=== PATIENT | male | born 1990 | race Caucasian/White ===

== ENCOUNTER 2018-01-17 19:28 | Emergency (ER) | payer OTHER ==
[2018-01-17 20:02] VITALS: BP 134/83
--- NOTE | 2018-01-17 20:16 | UC ---
Dental HPI - HPI Summary HPI Summary: C/O right upper dental pain from 3 days ago. Getting worse. tried 4 doses of 500mg amoxicillin - History of Current Complaint Chief Complaint: UCDentalProblem Stated Complaint: ORAL/DENTAL COMPLAINT Time Seen by Provider: 01/17/18 19:46 Hx Obtained From: Patient Onset/Duration: Gradual Onset, Lasting Days - 3, Worse Since - onset Severity: Severe Pain Intensity: 7 Aggravating Factor(s): Chewing - Allergies/Home Medications Allergies/Adverse Reactions: Allergies Allergy/AdvReac Type Severity Reaction Status Date / Time No Known Allergies Allergy Verified 01/17/18 20:02 Home Medications: Home Medications Ibuprofen TAB* [Motrin TAB* 800 MG] 800 mg PO Q6H PRN 01/17/18 [History Confirmed 01/17/18] PMH/Surg Hx/FS Hx/Imm Hx Previously Healthy: Yes - Surgical History Surgical History: None - Family History Known Family History: Negative: Cardiac Disease, Hypertension, Diabetes - Social History Occupation: Employed Full-time Lives: With Family Alcohol Use: Rare Substance Use Type: None Smoking Status (MU): Heavy Every Day Tobacco Smoker Type: Cigarettes Amount Used/How Often: 1 ppd Length of Time of Smoking/Using Tobacco: since age 20 Have You Smoked in the Last Year: Yes - Immunization History Most Recent Tetanus Shot: 5 years ago Review of Systems ENT: Dental Pain Is Patient Immunocompromised?: No All Other Systems Reviewed And Are Negative: Yes Physical Exam Triage Information Reviewed: Yes Appearance: Well-Appearing, Well-Nourished, Pain Distress - mild Vital Signs: Initial Vital Signs Temp 99.9 F 01/17/18 19:55 Pulse 88 01/17/18 19:55 Resp 16 01/17/18 19:55 BP 134/83 01/17/18 19:55 Pulse Ox 99 01/17/18 19:55 Vital Signs Reviewed: Yes Eyes: Positive: Conjunctiva Clear ENT: Positive: Pharynx normal, TMs normal Dental: Positive: Abscess @ - #4 Neck exam: Normal Respiratory Exam: Normal Cardiovascular Exam: Normal Musculoskeletal Exam: Normal Neurological Exam: Normal Psychological Exam: Normal Skin Exam: Normal Dental Complaint Course/Dx - Differential Dx/Diagnosis Differential Diagnosis/Dx: Dental Abscess, Dental Caries, Fractured Tooth, Odontogenic Pain Provider Diagnoses: Dental abscess Discharge - Sign-Out/Discharge Documenting (check all that apply): Patient Departure - Discharge Plan Condition: Stable Disposition: HOME Prescriptions: Amoxicillin/Clavulanate TAB* [Augmentin TAB 875*] 875 mg PO BID #20 tab Patient Education Materials: Dental Abscess (ED), Amoxicillin/Clavulanate Potassium (By mouth) Referrals: No Primary Care Phys,NOPCP [Primary Care Provider] - (Follow up with Dentist this week.) - Billing Disposition and Condition Condition: STABLE Disposition: Home
[2018-01-17] MEDS ORDERED: Amoxicillin/Clavulanate TAB* 875 MG PO ONE (20:17)
== END 2018-01-17 20:24 | disposition home or self-care (01) ==
LOC: UCCORT 19:28
DX: K04.7 Periapical abscess without sinus (principal); F17.210 Nicotine dependence, cigarettes, uncomplicated
CPT/HCPCS: 99212; A9270-GY; G0463